=== PATIENT | male | born 1945 | race Caucasian/White ===

== ENCOUNTER 2018-01-01 14:07 | Emergency (ER) | payer OTHER ==
[~2018-01-01] VITALS: Ht 168.9 cm; Wt 80.0 kg
[~2018-01-01 14:07] MED LIST: AERIUS OR; ALLOPURINOL100 MG PO; ATENOLOL50 MG PO; CIPRO250 MG OR; KAYEXALATE15 GM/60 M PO; KEFLEX500 MG PO; PERCOCET 5/325M1 TAB OR; PROAIR HFA IN; SODI PO; SODIUM BICAR325 MG PO; STOOL SOFTNR100 M2 PO; [UNRECOGNIZED DRUG - OTHER] OR
[2018-01-01] MEDS ORDERED: ROCALTROL0.25 MCG PO (14:57)
[2018-01-01] MEDS ORDERED: LANSOPRAZOLE30 MG PO (14:57)
[2018-01-01] MEDS ORDERED: TYLENOL325 MG PO (14:58)
[2018-01-01 15:09] LABS: INFLUENZA A NONE DETECTED (NONE DETECT); INFLUENZA B NONE DETECTED (NONE DETECT)
[2018-01-01 15:29] VITALS: BP 137/88
== END 2018-01-01 15:40 | disposition home or self-care (01) | DRG 153 ==
LOC: ED 14:07
PROVIDERS: Family Medicine
DX: J06.9 Acute upper respiratory infection, unspecified (principal); N18.9 Chronic kidney disease, unspecified; Z85.46 Personal history of malignant neoplasm of prostate

== ENCOUNTER 2018-01-21 04:30 | Inpatient (IN) | payer OTHER ==
[~2018-01-21] VITALS: Ht 170.2 cm; Wt 80.0 kg
[~2018-01-21 04:30] MED LIST changes: +LANSOPRAZOLE30 MG PO; +ROCALTROL0.25 MCG PO; +TYLENOL325 MG PO
--- NOTE | 2018-01-21 05:30 | NUR ---
VOMITED ABOUT 200 CC OF STOMACH CONTENTS
--- NOTE | 2018-01-21 05:44 | NUR ---
HELD NS PER DR HAGEN
--- NOTE | 2018-01-21 06:06 | NUR ---
DRINKING PO CONTRAST FOR CT
[2018-01-21 06:47] LABS: HEMATOCRIT 41.1 % (39.0-50.0); IMMATURE GRANULOCYTES 0.2 % (0.0-1.0); MEAN CELL VOLUME 93.8 fL CALC (80.0-100.0); MEAN CORPUSCULAR HGB CONC 34.1 g/L CALC (32.0-36.0); NEUT# 6.83 thou/uL (1.82-7.42); RED BLOOD COUNT 4.38 mill/uL (4.70-6.10); RED CELL DISTRI WIDTH 13.2 % (11.5-15.5)
[2018-01-21 07:00] LABS: ALBUMIN 4.5 g/dL (3.2-5.0); CREATININE 4.5 mg/dL (0.7-1.3); POTASSIUM 4.3 mmol/l (3.5-5.1); TOTAL PROTEIN 7.3 g/dL (6.3-8.2)
--- NOTE | 2018-01-21 07:11 | NUR ---
PATIENT RESTING AWAITING CT PATIENT HAS NO CONCERNS OR REQUESTS AT THIS TIME
--- NOTE | 2018-01-21 08:00 | NUR ---
PATIENT MEDICATED PER MD ORDER FOR NAUSEA
--- NOTE | 2018-01-21 09:08 | NUR ---
MD AT BEDSIDE DISCUSSING RESULTS WITH PATIENT
--- NOTE | 2018-01-21 09:23 | NUR ---
NG TUBE USING 16 FR TUBING PLACED PATIENT TOLERATED WELL AND SET TO INTERRMITTENT LOW SUCTION. 1000 ML OF BILE GREEN COLORED LIQUID REMOVED. PATIENT DENIES ANY PAIN AND NAUSEA DECREASED
--- NOTE | 2018-01-21 09:44 | NUR ---
SBAR PRINTED TO FLOOR
--- NOTE | 2018-01-21 09:57 | NUR ---
REPORT CALLED TO [facility] AND PATIENT TRANSPORTED TO THE FLOOR
[2018-01-21 10:15] VITALS: BP 141/78
--- NOTE | 2018-01-21 10:39 | NUR ---
REPORT RECEIVED FROM ASPEN IN ED, PT ARRIVED ON UNIT @ 1015, ALERT AND ORIENTED X 4, DENIES PAIN AT THIS TIME, NG TUBE IN PLACE LEFT NARE, CONNECTED TO LIS, GREEN BILE DRAINAGE BEINE EVACUATED, TELE MOONITOR IN PLACE, IVF 0.9NS BOLUS STARTED, SETTLED IN BED, ORIENTED TO ROOM AND CALL CHRISTINA, ALL NEED ADDRESSED, WILL CONTINUE TO MONITOR.
--- NOTE | 2018-01-21 14:25 | NUR ---
PHONE CALL TO DR LOGAN, NEW ORDERS RECEIVED.
--- NOTE | 2018-01-21 14:33 | NUR ---
CALLED TO BEDSIDE DUE TO DIAPHRAGM HICCUPS. NG IRRIGATED WITH 30 CC TAP WATER, RETURNED LARGE BILIOUS DRAINAGE APPROX 300 CC. PT WITH C/O ABDOMINAL PAIN. POSITIONED FOR COMFORT IN HIGH FOWLERS POSITION, MEDICATED PRN ORDERS FOR NAUSEA AND PAIN.
[2018-01-21 14:48] VITALS: BP 128/81
--- NOTE | 2018-01-21 18:00 | NUR ---
PT C/O NAUSEA AND STARTED DRY HEAVING, NG IRRIGATED WITH 20CC H2O, NO SOLID PARTICLES ASPIRATED, ANTIEMETIC GIVEN, NAUSEA IMPROVED.
[2018-01-21 19:30] VITALS: BP 148/90
--- NOTE | 2018-01-21 19:30 | NUR ---
REPORT RECIEVED; PT SITTING ON SIDE OF BED. PT DENIES ANY PAIN OR DISCOMFORT. NG PATENT LEFT NARE. PT DENIES ANY PAIN OR DISCOMFORT. PT ENCOURAGED TO CALL FOR ASSISTANCE. SAFETY PRECAUTIONS REINFORCED. FREQUENT ROUNDS MADE; CALL LIGHT WITHIN REACH.
--- NOTE | 2018-01-21 20:30 | NUR ---
PT WOKE FOR ASSESSMENT; RESP EVEN AND UNLABORED. NG LEFT NARE PATENT; GREENISH BROWN DRAINAGE NOTED. NG CHECKED FOR PATENCY AND CONFIRMED. NG TO LIS SUCTION. ABD SOFT WITH HYPOACTIVE BOWEL SOUNDS PRESENT. WILL CONTINUE TO MONITOR CLOSELY. TELE IN PLACE. UROSTOMY PATENT. COLOSTOMY PRESENT. PEDAL PULSES PALPATED BILAT. LEFT ARM FISTULA NOTED; ARM NOT TO BE USED. IV RAC PATENT; NO REDNESS OR EDEMA NOTED. PT DENIES ANY PAIN OR DISCOMFORT. SAFETY PRECAUTIONS REINFORCED. CALL LIGHT WITHIHN REACH.
[2018-01-21 23:55] VITALS: BP 124/75
--- NOTE | 2018-01-22 00:05 | NUR ---
PT WOKE FOR VITAL SIGNS. NG PATENT; 200CC GREENISH BROWN DRAINAGE NOTED. PT DENIES PAIN OR DISCOMFORT. PT STATES THERE IS STILL NO OUTPUT IN COLOSTOMY. IV PATENT; NO REDNESS OR EDEMA NOTED. SAFETY PRECAUTIONS REINFORCED. CALL LIGHT WITHIN REACH.
--- NOTE | 2018-01-22 01:37 | NUR ---
NG DRAINING MODERATE AMOUNT OF GREENISH DRAINAGE. PATENCY CHECKED THEN NG FLUSHED WITH 25CC OF WATER WITHOUT DIFFICULTY. PT VOMITED 25CC OF YELLOWISH GREEN EMESIS. MEDICATED WITH ZOFRAN 4MG IV FOR NAUSEA. NG TO LIS. FREQUENT ROUNDS MADE; WILL CONTINUE TO MONITOR CLOSELY. CALL LIGHT WITHIN REACH.
--- NOTE | 2018-01-22 04:02 | NUR ---
PT RESTING IN SEMI-FOWLERS POSITION. RESP EVEN AND UNLABORED; NO DISTRESS NOTED. NG PATENT IN L NARE. TELE IN PLACE. IV PATENT; NO REDNESS OR EDEMA NOTED. CALL LIGHT WITHIN REACH.
[2018-01-22 04:50] VITALS: BP 121/73
--- NOTE | 2018-01-22 07:14 | NUR ---
SHIFT CHANGE REPORT FROM JORDAN COOPER AWAKE ALERT AND ORIENTED, NG TUBE IN PLACE TO LEFT NARE WITH GREENISH-BROWNISH DRAINAGE, TELE MONITOR IN PLACE, CALL CHRISTINA IN REACH.
[2018-01-22 08:42] VITALS: BP 117/71
[2018-01-22 09:52] LABS: URINE BILIRUBIN - DIPSTICK NEGATIVE (NEGATIVE); URINE BLOOD DIPSTICK MODERATE (NEGATIVE); URINE COLOR YELLOW; URINE GLUCOSE - DIPSTICK NEGATIVE (NEGATIVE); URINE KETONE NEGATIVE (NEGATIVE); URINE NITRITE - DIPSTICK NEGATIVE (Negative); URINE PH 7.5 (4.5-8.0); URINE PROTEIN - DIPSTICK >=300 mg/dL (NEG-TRACE); URINE UROBILINOGEN - DIPSTICK 0.2 E.U./dL (0.2)
[2018-01-22 09:53] LABS: URINE CLARITY HAZY; URINE LEUK ESTERASE MODERATE (NEGATIVE)
[2018-01-22 09:54] LABS: URINE BACTERIA MODERATE hpf; URINE EPITHELIAL CELLS FEW EPI/hpf (0-FEW); URINE MUCUS FEW hpf (NONE-FEW)
--- NOTE | 2018-01-22 11:48 | NUR ---
DR LEON HERE TO SEE PT AND WROTE ORDERS. DR LEON WAS CALLED FOR CLARIFICATION OF ORDERS AND GAVE VERBAL CLARIFICATION VIA TELEPHONE.
[2018-01-22 13:00] VITALS: BP 143/74
--- NOTE | 2018-01-22 16:00 | NUR ---
SITTING UP IN CHAIR WORKING ON COMPUTER, NG DRAINAGE FLOWING FREELY, DENIES PAIN, ALL NEEDS ADDRESSED, CALL CHRISTINA IN REACH.
[2018-01-22 16:05] VITALS: BP 135/77
--- NOTE | 2018-01-22 19:30 | NUR ---
PATIENT RESTING IN BED AT THIS TIME-AWAKE ALERT AND ORIENTEDX3. NGT TO LIWS DRAINING BROWN FLUID. ABD IS SOFT WITH BS+. PATIENT WITH COLOSTOMY TO LEFT ABD-NO DRAINAGE FOR A COUPLE DAYS PER PATIENT. UROSTOMY APPLIANCE WO RIGHT ABD INTACT AND DRAINING ALYCE URINE. PATIENT IS NPO AT THIS TIME. PATIENT DENIES ANY PAIN OR NAUSEA. SAFETY PRECAUTIONS REINFORCED. CALL LIGHT IN REACH. WILL CONT TO MONITOR.
[2018-01-22 19:57] LABS: HEMATOCRIT 41.1 % (39.0-50.0); HEMOGLOBIN 13.5 g/dl (14.0-18.0); IMMATURE GRANULOCYTES 0.2 % (0.0-1.0); MEAN CELL VOLUME 96.3 fL CALC (80.0-100.0); MEAN CORPUSCULAR HGB 31.6 pG CALC (26.0-32.0); MEAN CORPUSCULAR HGB CONC 32.8 g/L CALC (32.0-36.0); NEUT# 2.63 thou/uL (1.82-7.42); RED BLOOD COUNT 4.27 mill/uL (4.70-6.10); RED CELL DISTRI WIDTH 13.5 % (11.5-15.5)
[2018-01-22 20:12] LABS: ALBUMIN 3.7 g/dL (3.2-5.0); BILIRUBIN, TOTAL 1.2 mg/dL (0.0-1.4); POTASSIUM 4.5 mmol/l (3.5-5.1); TOTAL PROTEIN 6.3 g/dL (6.3-8.2)
[2018-01-22 21:20] VITALS: BP 147/81
--- NOTE | 2018-01-23 | NUR ---
PATIENT REMAINS IN BED WITH NO COMPLAINTS-NGT CONT TO DRAIN BROWN FLUID-FECAL SMELLING WHEN CANISTER CHANGED. IVF PATENT AND INFUSING D51/2NS AT 80CC/HR. SAFETY PRECAUTIONS REINFORCED.CALL LIGHT IN REACH. WILL CONT TO MONITOR.
[2018-01-23 00:10] VITALS: BP 137/81
--- NOTE | 2018-01-23 04:51 | NUR ---
PATIENT RESTING IN BED-NGT CONT TO DRAIN LARGE AMT OF BROWNISH RUST FLUID. ABD IS SOFT WITH BS PRESENT. NO DRAINAGE IN LEFT ABD COLOSTOMY AT THIS TIME. ILEAL CONDUIT DRIANED FOR 450CC OF DARK TEA COLORED URINE. PATIENT REMAINS NPO. PATIENT DOES HAVE AV FISTULA TO LEFT ARM THAT IS NOT CURRENTLY WORKING. STATES THAT IT HAS NEVER BEEN USED AND THAT HE IS SUPPOSED TO HAVE IT LOOKED AT WHEN HE GOES BACK TO [place] IN FEBRUARY. CALL LIGHT IN REACH. WILL CONT TO MONITOR.
[2018-01-23 04:52] VITALS: BP 121/80
[2018-01-23 05:10] LABS: HEMATOCRIT 40.7 % (39.0-50.0); HEMOGLOBIN 13.4 g/dl (14.0-18.0); IMMATURE GRANULOCYTES 0.2 % (0.0-1.0); MEAN CELL VOLUME 96.2 fL CALC (80.0-100.0); MEAN CORPUSCULAR HGB 31.7 pG CALC (26.0-32.0); MEAN CORPUSCULAR HGB CONC 32.9 g/L CALC (32.0-36.0); NEUT# 2.94 thou/uL (1.82-7.42); RED BLOOD COUNT 4.23 mill/uL (4.70-6.10); RED CELL DISTRI WIDTH 13.5 % (11.5-15.5)
[2018-01-23 05:24] LABS: POTASSIUM 4.1 mmol/l (3.5-5.1)
--- NOTE | 2018-01-23 06:25 | NUR ---
SPOKE WITH DR. ERAN TANNERING CT ABD WITH CONTRAST AND VERIFIED THAT IT WAS OK TO PROCEED WITH CONTRAST EVEN WITH HIS COMPRIMISED RENAL FUNC. WILL CONT WITH ORDER.
--- NOTE | 2018-01-23 07:26 | NUR ---
REPORT RECEIVED FROM VINCENT MODI. PT DENIES PAIN, NO NAUSEA. NGT CLAMPED AT THIS TIME R/T CT CONTRAST ADMINISTRATION. PLAN OF CARE DISCUSSED. PT STATES UNDERSTANDING. CALL LIGHT REVIEWED AND IN REACH. PT STATES UNDERSTANDING.
--- NOTE | 2018-01-23 07:47 | NUR ---
2ND DOSE OF ORAL CT CONTRAST ADMINISTERED. PT DENIES PAIN OR NAUSEA AT THIS TIME.
[2018-01-23 08:21] VITALS: BP 125/81
--- NOTE | 2018-01-23 08:28 | NUR ---
3RD DOSE OF GASTROGRAFIN ADMINISTERED.
--- NOTE | 2018-01-23 10:44 | NUR ---
PT BACK FROM CT. RECONNECTED NGT TO [facility], 1000ML BROWN LIQUID OUT IMMEDIATELY. PT REPORTS BOATING AND FEELING UNCOMFORATBLE PRIOR TO SUCTION AND RELIEF AFTER.
[2018-01-23 11:14] VITALS: BP 124/75
--- NOTE | 2018-01-23 14:00 | NUR ---
AWAITING ORDERS R/T TRANSFER AND INSURANCE RECOMMENDATION. PT STATES UNDERSTANDING.
[2018-01-23 15:36] VITALS: BP 146/80
--- NOTE | 2018-01-23 18:00 | NUR ---
PT DENIES COMPLAINTS. NGT TO [facility], PACO LIQUID DRAINING.
[2018-01-23 19:05] VITALS: BP 126/79
--- NOTE | 2018-01-23 20:00 | NUR ---
PATIENT RESTING IN BED-AWAKE ALERT AND ORIENTEDX3. NO COMPLAINTS AT THIS TIME. NGT TO LIWS DRAINING BROWN FLUID AT THIS TIME. PATIENT WITH COLOSTOMY BAG WITH NO DRAINAGE AT THIS TIME. ABD IS SOFT WITH BS+. ILEAL CONDUIT WITH APPLIANCE INTACT-DRAINING DARK TEA COLORED URINE. IVF D51/2NS PATENT AND INFUSING VIA RIGHT AC SITE AT 80CC/HR. SITE APPEARS HEALTHY AT THIS TIME. SAFETY PRECAUTIONS REINFORCED WITH PATIENT. CALL LIGHT IN REACH. WILL CONT TO MONITOR.
[2018-01-24] VITALS (7 sets, daily range): BP systolic 103–133; BP diastolic 64–92
--- NOTE | 2018-01-24 | NUR ---
PATIENT APPEARS RESTING COMFORTABLY AT THIS TIME WITH NO COMPLAINTS. NO CHNAGE IN NG DRAINAGE. CALL LIGHT IN REACH. WILL CONT TO MONITOR.
--- NOTE | 2018-01-24 03:42 | NUR ---
PATIENT RESTING IN BED AWAKE ALERT AND ORIENTED. PATIENT STATES THAT HE IS HAVING FORMED STOOL START TO PASS THROUGH INTO HIS COLOSTOMY BAG-THERE IS SMALL AMT OF FORMED STOOL IN COLOSTOMY BAG. ABD IS SOFT WITH HYPOACTIVE BS PRESENT. NG TUBE CONT TO DRAIN BROWN FLUID-LIWS IN PLACE. IVF PATENT AND INFUSING AT 80CC/HR. SITE REMAINS HEALTHY AT THIS TIME. CALL LIGHT IN REACH. WILL CONT TO MONITOR.
--- NOTE | 2018-01-24 06:26 | NUR ---
NGT DRAINING PALE GREENISH FLUID AT THIS TIME. PATIENT COLOSTOMY CONT TO DRAIN SOFT STOOL. CALL LIGHT IN REACH. WILL CONT TO MONITOR.
[2018-01-24 06:35] LABS: HEMATOCRIT 42.9 % (39.0-50.0); HEMOGLOBIN 14.1 g/dl (14.0-18.0); IMMATURE GRANULOCYTES 0.4 % (0.0-1.0); MEAN CELL VOLUME 96.2 fL CALC (80.0-100.0); MEAN CORPUSCULAR HGB 31.6 pG CALC (26.0-32.0); MEAN CORPUSCULAR HGB CONC 32.9 g/L CALC (32.0-36.0); NEUT# 3.26 thou/uL (1.82-7.42); RED BLOOD COUNT 4.46 mill/uL (4.70-6.10); RED CELL DISTRI WIDTH 13.2 % (11.5-15.5)
[2018-01-24 06:59] LABS: ALBUMIN 3.7 g/dL (3.2-5.0); CREATININE 4.3 mg/dL (0.7-1.3); POTASSIUM 4.2 mmol/l (3.5-5.1)
--- NOTE | 2018-01-24 07:00 | NUR ---
SHIFT CHANGE REPORT FROM JORDAN MODI AWAKE ALERT AND ORIENTED SITTING UP IN BED READING, NG TUBE IN PLACE TO L.NARE WITH CLEAR LIGHT GREEN DRAINAGE, IVF INFUSING, REPORTS HE IS NOW PASSING STOOL FROM COLOSTOMY AND IS EXCITED ABOUT THIS CHANGE, NO C/O DISCOMFORT, WILL CONTINUE TO MONITOR.
--- NOTE | 2018-01-24 12:35 | NUR ---
SITTING UP IN CHAIR AT THIS TIME, NG TUBE IN PLACE WITH CLEAT LIGHT GREEN DRAINAGE, NO C/O DISCOMFORT, CALL CHRISTINA IN REACH.
--- NOTE | 2018-01-24 16:14 | NUR ---
SPOUSE VISITING AND BOTH PLAYING CARD GAMES AT THIS TIME. NG TUBE CLAMPED AT 1600 FOR ORDERED MED, STOOL IN COLOSTOMY BAG AND AMOUNT INCREASING, NO C/O DISCOMFORT, WILL CONTINUE TO MONITOR, CALL CHRISTINA IN REACH.
--- NOTE | 2018-01-24 17:40 | NUR ---
DR HANLEY ROUNDED AGAIN, GAVE ORDERS TO REMOVE NG TUBE AND GIVE CLEAR LIQUIDS
--- NOTE | 2018-01-24 17:56 | NUR ---
[place] TUBE OUT @ 1756, PT TOLERATED PROCEDURE WELL.
--- NOTE | 2018-01-24 19:30 | NUR ---
PATIENT RESTING IN BED AT THIS TIME-AWAKE ALERT AND ORIENTEDX3. COLOSTOMY FUNCTIONING AND PATIENT UP TO EMPTY APPLIANCE FOR MODERATE AMT OF BROWN STOOL. PATIENT WITH ILEAL CONDUIT TO RIGHT ABD INTACT. IV SITE TO RIGHT AC INTACT AND IVF DECREASED TO 50CC/HR ORDERED. SITE APPEARS HEALTHY. PATIENT WAS ABLE TO TAKE CLEAR LIQUID DIET FOR DINNER-TOLERATED WELL SO FAR. DENIES ANY PAIN. SAFETY PRECAUTIONS REINFORCED.CALL LIGHT IN REACH. WILL CONT TO MONITOR.
--- NOTE | 2018-01-25 00:09 | NUR ---
PATIENT RESTING IN BED AT THIS TIME-VS TAKEN AND RECORDED. PATIENT STATES THAT HE JUST EMPTIED MODERATE AMT OF LIQUID BROWN STOOL. 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 DENIES ANY PAIN, NAUSEA. TOLERATING CLEAR LIQUIDS WELL. CALL LIGHT IN REACH. WILL CONT TO MONITOR.
--- NOTE | 2018-01-25 04:08 | NUR ---
PATIENT APPEARS SLEEPING AT THIS TIME WITH EYEAS CLOSED. CALL LIGHT IN REACH. WILL CONT TO MONITOR.
[2018-01-25 04:45] VITALS: BP 87/67
--- NOTE | 2018-01-25 07:10 | NUR ---
SHIFT CHANGE REPORT FROM LY, PT AWAKE ALERT AND ORIENTED, STATED HE FEELS EXCELLENT THIS MORNING AND PASSING STOOLS, DENIES DISCOMFORT, TELE MONITOR IN PLACE, WILL CONTINUE TO MONITOR.
[2018-01-25 07:58] VITALS: BP 109/70
[2018-01-25 08:41] VITALS: BP 115/71
--- NOTE | 2018-01-25 09:48 | NUR ---
SHOWERED AND SHAVED, EXCITED ABOUT IMPROVEMENTS IN MEDICAL CONDITON AND WANTS TO GO HOME NOW, PASSING GAS AND STOOLS. RN MADE REQUEST TO SUPERVISOR STERILE PROCESSING TO RESTART STOOL SOFTNERS AFTER TALKING TO PT ABOUT PREVENTION OF CONSTIPATION. WILL CONTINUE TO MONITOR.
[2018-01-25 11:00] VITALS: BP 100/63
[2018-01-25] MEDS ORDERED: VANTIN100 MG PO (12:31)
--- NOTE | 2018-01-25 13:55 | NUR ---
Discharge instructions given. Patient verbalizes understanding of same. Discharged in good condition via Ambulatory to Home with spouse. All belongings sent with pt.
== END 2018-01-25 13:56 | disposition home or self-care (01) | DRG 389 ==
LOC: ED 04:30 → ED-I 09:26 → ED 09:46 → MS2 09:47
PROVIDERS: Emergency Medicine; Hospitalist; Internal Medicine Nephrology; Nurse Practitioner Family; ADMIT Internal Medicine; ATTEND Internal Medicine
DX: K56.50 Intestinal adhesions [bands], unspecified as to partial versus complete obstruction (principal); N17.9 Acute kidney failure, unspecified; N39.0 Urinary tract infection, site not specified; C61 Malignant neoplasm of prostate; N18.4 Chronic kidney disease, stage 4 (severe); E83.52 Hypercalcemia; Z93.6 Other artificial openings of urinary tract status; I12.9 Hypertensive chronic kidney disease with stage 1 through stage 4 chronic kidney disease, or unspecified chronic kidney disease; B96.4 Proteus (mirabilis) (morganii) as the cause of diseases classified elsewhere; Z93.3 Colostomy status; Z92.21 Personal history of antineoplastic chemotherapy; Z90.5 Acquired absence of kidney; Z87.440 Personal history of urinary (tract) infections
CPT/HCPCS: J1650